=== PATIENT | male | born 1945 | race Caucasian/White ===

== ENCOUNTER 2023-06-27 05:42 | Observation (INO) ==
[~2023-06-27 05:42] MED LIST: Naloxone 0.4 mg VIAL 0.4 mg/ml 1 ml VIAL IV PRN; Ondansetron 4 mg VIAL 2 MG/ML 2 ml VIAL IV PRN; fentaNYL 100 mcg/2 ml 50 MCG/ML VIAL IV PRN
[2023-06-27] MEDS ORDERED: Buffered Lidocaine 1% SYRIN 1 ml INTRADERM ONE (06:00)
[2023-06-27] MEDS ORDERED: Lactated Ringers 1000 ml BAG 1,000 ML IV SCH (06:00)
[2023-06-27] MEDS ORDERED: Tranexamic Acid 1 GM/100ML BAG 2,000 MG/200 ML BAG IV ONE (06:02)
[2023-06-27] MEDS ORDERED: ceFAZolin 2 GM PREMIX 2 GM/50 ML BAG ONE (06:02)
[2023-06-27 06:37] LABS: Rapid COVID-19 Molecular Undetected (Undetected)
[2023-06-27] MEDS ORDERED: ROPIVACAINE 5 MG/ML 30 ML BTL (0.5%) ONE ×2 (06:58→10:31)
[2023-06-27] MEDS ORDERED: Midazolam 2 mg/2 ml VIAL 1 mg/ml 2 ml VIAL (2 mg) ONE (07:23)
[2023-06-27] MEDS ORDERED: Propofol 10 MG/ML 20 ML BTL ONE (07:23)
[2023-06-27] MEDS ORDERED: fentaNYL 250 mcg/5 ml 50 MCG/ML 5 ml VIAL (250 MCG) ONE (07:23)
[2023-06-27] MEDS ORDERED: Lidocaine 2% PF 5 ML VIAL ONE (07:23)
[2023-06-27] MEDS ORDERED: Rocuronium 50 mg VIAL 10 mg/ml 5 ml VIAL (50 mg) ONE (07:23)
[2023-06-27] MEDS ORDERED: Ondansetron 4 mg VIAL 2 MG/ML 2 ml VIAL ONE (09:01)
[2023-06-27] MEDS ORDERED: Dexamethasone IV 4 MG/ML VIAL 1 ml VIAL ONE (09:01)
[2023-06-27] MEDS ORDERED: HYDROmorphone 0.5 MG/0.5 ML SYRINGE ONE (09:40)
[2023-06-27] MEDS ORDERED: Acetaminophen IV 1 GM/100ML 1,000 MG/100 ML BAG IV ONE (09:45)
[2023-06-27] MEDS ORDERED: Ondansetron ODT 4 mg TAB 4 MG TAB PO PRN (11:10)
[2023-06-27] MEDS ORDERED: Ondansetron 4 mg VIAL 2 MG/ML 2 ml VIAL IV PRN (11:10)
[2023-06-27] MEDS ORDERED: Morphine 2 MG/ML SYRINGE IV PRN (11:10)
[2023-06-27] MEDS ORDERED: Magnesium Hydroxide LIQ 30 ML UDC PO PRN (11:10)
[2023-06-27] MEDS ORDERED: Lactulose 30 ml UDC PO PRN (11:10)
[2023-06-27] MEDS: Lactated Ringers 1000 ml BAG 1,000 ML IV SCH (13:15)
[2023-06-27] MEDS: ceFAZolin 1 GM ADVAN 1 GM in NS 0.9% 50 ML 50 ML IVPB SCH (17:17)
[2023-06-27] MEDS: Magnesium Hydroxide LIQ 30 ML UDC PO SCH (22:11)
[2023-06-28] MEDS: Lactated Ringers 1000 ml BAG 1,000 ML IV SCH (00:11)
[2023-06-28] MEDS: ceFAZolin 1 GM ADVAN 1 GM in NS 0.9% 50 ML 50 ML IVPB SCH ×2 (02:19→07:45)
[2023-06-28 06:33] LABS: Platelet Count 186 10^3/uL (150-450)
[2023-06-28 06:50] LABS: Calcium 8.6 mg/dL (8.6-10.3); Creatinine, Serum 0.93 mg/dL (0.67-1.17); eGFR CKD-EPI 84.6 (>60)
[2023-06-28 07:00] LABS: Hematocrit 33.7 % (38-53); Hemoglobin 11.6 g/dL (13.2-16.3); Mean Platelet Volume 8.1 fL (7.5-11.2)
[2023-06-28] MEDS: Magnesium Hydroxide LIQ 30 ML UDC PO SCH (07:43)
[2023-06-28] MEDS ORDERED: Vitamin THERAPEUTIC TAB PO SCH (09:00)
[2023-06-28 10:52] VITALS: BP 125/56
== END 2023-06-28 11:30 | disposition home or self-care (01) ==
LOC: AA 05:42 → INTOOBSV 05:42 → SSU 11:10
PROVIDERS: ADMIT Orthopaedic Surgery Adult Reconstructive Orthopaedic Surgery; ATTEND Orthopaedic Surgery Adult Reconstructive Orthopaedic Surgery